=== PATIENT | male | born 1985 | race Caucasian/White ===

== ENCOUNTER 2020-10-09 11:58 | Outpatient (CLI) | payer BC | END 2020-10-09 11:59 | disposition home or self-care (01) | LOC: BURRAD 11:58 | PROVIDERS: ATTEND Physician Assistant | DX: M25.512 Pain in left shoulder (principal); M79.662 Pain in left lower leg; M54.12 Radiculopathy, cervical region | CPT/HCPCS: 72040 ==

== ENCOUNTER 2021-11-16 08:58 | Outpatient (CLI) | payer BC | END 2021-11-16 08:59 | disposition home or self-care (01) | LOC: BURRAD 08:58 | PROVIDERS: ATTEND Physician Assistant | DX: M54.6 Pain in thoracic spine (principal); M47.814 Spondylosis without myelopathy or radiculopathy, thoracic region | CPT/HCPCS: 72072 ==